=== PATIENT | female | born 1980 | race Caucasian/White ===

== ENCOUNTER 2018-03-05 20:54 | Emergency (ER) | payer MEDICAID ==
[2018-03-05] MEDS: IBUPROFEN 800 MG TAB PO (22:03)
[2018-03-05 22:19] LABS: ADD UMIC YES; UR ASCORBIC ACID NEGATIVE (NEGATIVE); UR BACTERIA FEW /HPF (NONE SEEN); UR BILIRUBIN (Dip) NEGATIVE (NEGATIVE); UR BLOOD (Dip) 2+ mg/dL (NEGATIVE); UR CLARITY CLEAR (CLEAR); UR COLOR AMBER (YELLOW); UR GLUCOSE (Dip) NEGATIVE (NEGATIVE); UR KETONES (Dip) NEGATIVE (NEGATIVE); UR LEUKOCYTE ESTERASE (Dip) 1+ Leu/ul (NEGATIVE); UR NITRITE (Dip) POSITIVE (NEGATIVE); UR RBC 8 /HPF (0-5); UR SPECIFIC GRAVITY (Dip) 1.005 (1.003-1.030); UR SQUAMOUS EPITHELIAL CELL FEW /HPF (FEW); UR TOTAL PROTEIN (Dip) 1+ mg/dl (NEGATIVE); UR UROBILINOGEN (Dip) 2+ mg/dL (NEGATIVE); UR WBC 167 /HPF (0-5)
[2018-03-05] MEDS ORDERED: LIDOCAINE 1% (MDV) 20 ML INJ SC (22:30)
[2018-03-05] MEDS: CEFTRIAXONE 1 GM INJ IM (22:42)
[2018-03-05] MEDS: LIDOCAINE 1% (MPF) 5 ML VIAL SC (23:31)
== END 2018-03-05 23:47 | disposition home or self-care (01) ==
LOC: FTE 20:54
DX: N39.0 Urinary tract infection, site not specified (principal)
CPT/HCPCS: 81001; 81025; 87086; 96372; 99284-25